=== PATIENT | female | born 1955 | race Caucasian/White ===

== ENCOUNTER 2017-12-21 10:22 | Emergency (ER) | payer SELFPAY ==
[~2017-12-21] VITALS: Ht 157.5 cm; Wt 79.0 kg
[2017-12-21 10:42] VITALS: BP 164/83
== END 2017-12-21 12:00 | disposition left against medical advice (07) ==
LOC: ER 11:52
DX: M79.605 Pain in left leg (principal); Z53.21 Procedure and treatment not carried out due to patient leaving prior to being seen by health care provider